=== PATIENT | male | born 1955 | race Two or more races ===

== ENCOUNTER → 2019-11-07 | Outpatient (CLI) | payer BC ==
--- NOTE | 2019-11-07 10:49 | XR ---
EXAMINATION TYPE: XR KUB DATE OF EXAM: 11/07/2019 CLINICAL DATA: 64-year-old male right-sided kidney stones, PHH COMPARISON: None FINDINGS: Supine imaging limited for assessment of free air. Prominent bowel content limits visualization of the renal shadows. Equivocal 1.5 cm calculus versus s tool ball at the right mid abdomen. Small 4 mm calculus suggested at the lower pole of the right kidn ey. A couple small phleboliths in the left side of the pelvis. Surgical clips in the right lower quad rant and within the right side of the pelvis. Nonobstructive bowel gas pattern. Moderate stool in the right side of the abdomen. IMPRESSION: 1. Bowel content obscures much of the kidneys. Equivocal between a 1.5 cm renal calculus versus stool ball on the right. 2. Suspect a tiny 4 mm right lower pole renal calculus.
== END | disposition home or self-care (01) ==
LOC: RADXRMAIN 10:22
PROVIDERS: ATTEND Urology
DX: N20.0 Calculus of kidney (principal)
CPT/HCPCS: 74018

== ENCOUNTER → 2019-11-18 | Outpatient (CLI) | payer BC ==
--- NOTE | 2019-11-18 09:35 | XR ---
EXAMINATION TYPE: XR KUB DATE OF EXAM: 11/18/2019 9:27 AM CLINICAL HISTORY: Right-sided renal calculus. Recent lithotripsy. TECHNIQUE: Single supine KUB image of the abdomen is obtained. COMPARISON: 11/07/2019. FINDINGS: Right stent has been placed coiled with its proximal portion overlying the expected region of the kidney and distal portion in the expected region of the urinary bladder. Again stool overlies the renal shadow. Again there is a suspected 4 mm right lower pole renal calculus. The previously see n 1.5 cm possible calculus is no longer visualized. Some density is noted along the proximal aspect o f the ureteral stent. Surgical clips are also seen over the right iliac bone. IMPRESSION: Interval placement of a right ureteral stent status post lithotripsy. There is some elong ated density along the ureteral stent that may represent fragments of calculi. Probable 4 mm right lo wer pole renal calculus remains. Stool overlies the right renal shadow partially obscures visualizati on.
== END | disposition home or self-care (01) ==
LOC: RADXRMAIN 09:11
PROVIDERS: ATTEND Urology
DX: R93.41 Abnormal radiologic findings on diagnostic imaging of renal pelvis, ureter, or bladder (principal); Z96.0 Presence of urogenital implants
CPT/HCPCS: 74018

== ENCOUNTER → 2020-12-31 | Outpatient (CLI) | payer BC ==
--- NOTE | 2020-12-31 10:04 | US ---
EXAMINATION TYPE: US kidneys/renal and bladder DATE OF EXAM: 12/31/2020 COMPARISON: None CLINICAL HISTORY: D49.4 BLADDER CA. hx bladder cancer. Hx renal stones. EXAM MEASUREMENTS: Right Kidney: 10.2 x 5.3 x 5.4 cm Left Kidney: 11.1 x 4.7 x 5.7 cm Right Kidney: No hydronephrosis or masses seen Left Kidney: lower pole echogenic focus with slight shadow = 0.5 x 0.6 cm Bladder: moderately distended, anechoic. Suspicious changes for neoplasm not identified on this ultra sound exam. Left jet seen IMPRESSION: 1. Nonobstructing inferior pole left renal stone
== END | disposition home or self-care (01) ==
LOC: RADUSWWP 08:51
PROVIDERS: ATTEND Urology
DX: N20.0 Calculus of kidney (principal); C67.4 Malignant neoplasm of posterior wall of bladder; D49.4 Neoplasm of unspecified behavior of bladder
CPT/HCPCS: 76770

== ENCOUNTER → 2022-01-27 | Outpatient (CLI) | payer BC ==
--- NOTE | 2022-01-27 08:01 | US ---
EXAMINATION TYPE: US kidneys/renal and bladder DATE OF EXAM: 01/27/2022 COMPARISON: Prior renal ultrasound December 31, 2020 CLINICAL HISTORY: C67.4 BLADDER CA. Bladder CA x 2 years ago. EXAM MEASUREMENTS: Right Kidney: 10.2 x 4.3 x 4.5 cm Left Kidney: 9.7 x 5.0 x 4.1 cm Right Kidney: No hydronephrosis or masses seen Left Kidney: No hydronephrosis or masses seen Bladder: wnl Bilateral Jets seen: Yes There is no evidence for hydronephrosis at this point in time. No nephrolithiasis is seen. No conrad s are identified. The urinary bladder is not greatly distended. Bilateral ureteral jets are seen. IMPRESSION: Unremarkable study.
== END | disposition home or self-care (01) ==
LOC: RADUSWWP 07:02
PROVIDERS: ATTEND Urology
DX: C67.4 Malignant neoplasm of posterior wall of bladder (principal)
CPT/HCPCS: 76770

== ENCOUNTER → 2023-07-07 | Outpatient (CLI) | payer MEDICARE, BC ==
--- NOTE | 2023-07-14 12:51 | MR ---
EXAMINATION TYPE: MR shoulder RT wo con DATE OF EXAM: 07/07/2023 COMPARISON: None HISTORY: Rt shoulder pain TECHNIQUE: Multiplanar, multisequence imaging of the right shoulder is performed without contrast. FINDINGS: There is moderate to marked osteoarthritic change of the acromioclavicular joint and of the glenohume ral joint. There is superior subluxation of the glenohumeral joint. There is complete tears of the obando praspinatus and infraspinatus tendons with marked retraction of the musculotendinous junctions. There are subchondral cysts in the lateral humeral head. There is avulsion of the biceps tendon consistent with a SLAP injury There is tendinosis of the subscapularis tendon without tear or avulsion. IMPRESSION: 1. Chronic complete rotator cuff tears involving the supraspinatus and infraspinatus tendons with mar ked retraction. 2. Moderate to marked degenerative change of the acromioclavicular joint and glenohumeral joint. 3. superior subluxation of the glenohumeral joint. 4. Long head biceps tendon avulsion consistent with SLAP injury
== END | disposition home or self-care (01) ==
LOC: RADMRIMAIN 14:58
PROVIDERS: ATTEND Orthopaedic Surgery
DX: M75.121 Complete rotator cuff tear or rupture of right shoulder, not specified as traumatic (principal); M19.011 Primary osteoarthritis, right shoulder; S43.001A Unspecified subluxation of right shoulder joint, initial encounter; M67.813 Other specified disorders of tendon, right shoulder

== ENCOUNTER → 2023-08-24 | Outpatient (CLI) | payer MEDICARE, BC ==
[2023-08-24 16:33] LABS: HCT 43.3 % (39.6-50.0); HGB 14.3 d/dL (13.0-17.0); MCH 33.2 pg (27.0-32.0); MCV 100.5 FL (80.0-97.0); Mean Platelet Volume 9.3 FL (9.5-12.2); NRBC Per 100 WBC 0 X 10*3/uL (0.00-0.01); Platelet Count 307 X 10*3/uL (140-440); RBC 4.31 X 10*6/uL (4.40-5.60); RDW 12.2 % (11.5-14.5); WBC 6.13 X 10*3/uL (4.50-10.00)
[2023-08-24 16:51] LABS: Anion Gap 13.3 mmol/L (4.00-12.00); Carbon Dioxide 24.7 mmol/L (21.6-31.8); Potassium 4.4 mmol/L (3.5-5.5)
== END | disposition home or self-care (01) ==
LOC: LABPAT 11:42
PROVIDERS: ATTEND Orthopaedic Surgery
DX: Z01.812 Encounter for preprocedural laboratory examination (principal); M75.41 Impingement syndrome of right shoulder
CPT/HCPCS: 80051; 85027

== ENCOUNTER 2023-09-06 12:31 | Day surgery (SDC) | payer MEDICARE, BC ==
[2023-09-04 11:52] VITALS: BMI 23.4
--- NOTE | 2023-09-05 13:56 | HP ---
HISTORY AND PHYSICAL DATE OF SCHEDULED SURGERY: 09/06/2023. HISTORY OF PRESENT ILLNESS: Spencer Conner is a 68-year-old gentleman seen with progressive right shoulder pain. We discussed options for treatment, he elected to proceed with right shoulder arthroscopy. Consent was obtained. PAST MEDICAL HISTORY: Hypertension, hyperlipidemia. SURGICAL HISTORY: Knee arthroscopy, left shoulder arthroscopy, corneal transplant, appendectomy. DAILY MEDICATIONS: 1. Amlodipine. 2. Atorvastatin. 3. Tylenol. ALLERGIES: LUIS EDUARDO inhibitors and NSAIDs. SOCIAL HISTORY: Denies tobacco use. PHYSICAL EVALUATION OF THE RIGHT SHOULDER: Flexion is 90 degrees, abduction is 70 degrees, external rotation is 50 degrees with pain and weakness. Tenderness along the anterior lateral acromion rotator cuff insertion. Impingement is positive 80 degrees. Cross body adduction sign is positive. Drop-arm sign is positive. RADIOGRAPHS: Right shoulder revealed a type 3 acromion, severe acromioclavicular joint osteoarthritis and cystic changes of the greater tuberosity. Right shoulder MRI revealed a read large retracted rotator cuff tendon tear, acromioclavicular joint osteoarthritis and labral tear. IMPRESSION: 1. Right shoulder impingement with rotator cuff tear. 2. Right shoulder acromioclavicular joint osteoarthritis. 3. Right shoulder labral tear. 4. Hypertension. 5. Hyperlipidemia. PLAN: Right shoulder arthroscopy with subacromial decompression, rotator cuff repair, Lindsey procedure and debridement. MMODL / BRIANNAN: [id number] /
[~2023-09-06 12:31] MED LIST: DEXAMETHASONE SOD PHOSPHATE 4 MG/ML 1 ML VIAL IV ONE; HYDROmorphone 0.5 MG/0.5 ML SYRINGE IVP PRN; LACTATED RINGERS 1,000 ML IV SCH; LIDOCAINE 1% (10MG/ML) FOR IV START INTRADERMA PRN; MIDAZOLAM 2 MG/2 ML VIAL IV PRN; ONDANSETRON 4 MG/2 ML VIAL IVP ONE
[2023-09-06] MEDS ORDERED: LACTATED RINGERS 1,000 ML IV ONE (12:51)
[2023-09-06 13:03] VITALS: TEMP 97.3
[2023-09-06] MEDS ORDERED: MIDAZOLAM 2 MG/2 ML VIAL IVP ONE (13:22)
[2023-09-06] MEDS ORDERED: SUCCINYLCHOLINE CHLORIDE 200 MG/10 ML VIAL IV ONE (13:44)
[2023-09-06] MEDS ORDERED: SODIUM CHLORIDE 0.9% (PF) 10 ML VIAL ONE (13:44)
[2023-09-06] MEDS ORDERED: fentaNYL (PF) 50 MCG/ML 2 ML AMP ONE (13:44)
[2023-09-06] MEDS ORDERED: ROCURONIUM 10 MG/ML (5 ML VIAL) IV ONE (13:44)
[2023-09-06] MEDS ORDERED: PROPOFOL 10 MG/ML 20 ML VIAL IV ONE (13:44)
[2023-09-06] MEDS ORDERED: ROPIVACAINE 5 MG/ML 30 ML VIAL ONE (13:44)
[2023-09-06] MEDS ORDERED: NEOSTIGMINE 1 MG/ML 10 ML VIAL ONE (13:44)
[2023-09-06] MEDS ORDERED: GLYCOPYRROLATE 0.2 MG/ML 2 ML VIAL ONE (13:44)
[2023-09-06] MEDS ORDERED: ePHEDrine 50 MG/ML 1 ML VIAL ONE (13:44)
[2023-09-06] MEDS ORDERED: LIDOCAINE 1% INJ 10MG/ML (20 ML MDV) ONE (13:44)
--- NOTE | 2023-09-06 15:45 | P.OP ---
Date of Procedure: 09/06/23 Preoperative Diagnosis: Right shoulder impingement Postoperative Diagnosis: 1. Right shoulder rotator cuff tear 2. Right shoulder impingement 3. Right shoulder acromioclavicular joint osteoarthritis 4. Right shoulder glenoid grade 4 chondromalacia/osteoarthritis Procedure(s) Performed: 1. Right shoulder arthroscopic rotator cuff repair 2. Right shoulder arthroscopic subacromial decompression 3. Right shoulder arthroscopic Lindsey procedure 4. Right soulder arthroscopic microfracture glenoid Implants: 1Arthrex 5.5 swivel lock anchor Anesthesia: GETA, regional (Interscalene block) Surgeon: Ole Brody Bell Clerk #1: Fred Parsons Estimated Blood Loss (ml): 11 Pathology: none sent Condition: stable Disposition: PACU Indications for Procedure: 68-year-old gentleman seen with progressive right shoulder pain. After having treatment options discussed, he elected to proceed with arthroscopy. Operative Findings: See description of procedure Description of Procedure: Patient underwent an interscalene block by department of anesthesia. The patient was then taken to the operative suite. The patient underwent a general anesthetic by the department of anesthesia. The patient was placed into a lateral position and secured. There was appropriate padding of the bony prominence. Right shoulder was then prepped and draped in normal sterile orthopedic fashion. We placed the extremity in 10 pounds of longitudinal traction. A posterior incision was now made for a posterior working portal site. The trocar and cannula were inserted into the glenohumeral joint. Arthroscopy was initiated. Spinal needle was now inserted anteriorly, to ascertain the anterior working portal site. An incision was now made in that area, a trocar was inserted followed by a probe. The long head biceps tendon was absent. The labrum was diminutive with no tearing. There was a massive rotator cuff tear present. There were grade 3/4 chondromalacia changes of the glenoid fossa with 2 areas of exposed bone present. The humeral head had grade 1 chondromalacia with no tears. I introduced a microfracture awl. I performed microfracture's to 2 areas of exposed bone penetrating the bone with resultant bleeding at the microfracture site. The repair was probed and was stable. Instruments were now removed from the glenohumeral joint. Utilizing the posterior working portal site, the trocar and cannula were inserted into the subacromial space. Arthroscopy initiated. I made an incision 2 fingerbreadths lateral to the acromion. I introduced my trocar followed by my ArthroCare ablator. I now began ablating thick subacromial bursal tissue, which exposed the undersurface of the anterior acromion. There was diminished subacromial space. There was a very prominent anterior acromion. A motorized bur was introduced and a subacromial decompression was performed. I also excised some osteophytes off the inferior aspect of the distal clavicle. The AC joint was visualized and noted to be fairly arthritic. The motorized bur was introduced in the anterior portal site and a Lindsey procedure was performed without difficulty, decompressing the AC joint nicely. I turned my attention to the rotator cuff. There was a massive retracted rotator cuff tendon tear. I slowly began dissecting the area around the tendon. The tear was retracted beyond the glenoid. I now began meticulously releasing the tendon. At this point I could get the posterior portion of the tendon mobilized but not the middle and anterior portion. I abraded the footprint with a motorized bur. With the assistance of Scott NAVARRO past 5 converging sutures which helped converge the posterior aspect of the remaining tendon with the central area. I now passed 3 everted mattress sutures through good bites of rotator cuff tendon. I punched hole the footprint area for insertion of an anchor. All 6 limbs were passed through the eyelet of the Arthrex 5.5 swivel lock anchor. I placed the eyelet into the pre-punch hole and held in position while Scott NAVARRO tension the sutures and laid the anchor. We good fixation of the anchor. All residual suture limbs were clipped. We had good coverage with adequate fixation but under some tension. Instruments now removed from the portal sites. All portal sites were approximated with nylon suture. Sterile dressings were applied followed by a shoulder immobilizer. Fred NAVARRO assisted in this complex case. The patient was awakened, transferred to a bed, and taken to recovery in stable condition.
[2023-09-06 16:47] VITALS: RESP 16
[2023-09-06 17:09] VITALS: BP 133/84; PULSE 69
--- NOTE | 2023-09-06 18:24 | P.ANPRN ---
Procedure Note - Anesthesia - Nerve Block Performed Left Interscalene Single Time Out Performed: Yes Date of Procedure: 09/06/23 Procedure Start Time: : Procedure Stop Time: Location of Patient: PreOp Indication: Acute Post-Operative Pain, Requested by Surgeon Sedation Type: Sedate with meaningful contact maintained Preparation: Sterile Prep Position: Supine Needle Types: Pajunk Needle Gauge: 21 Ultrasound used to visualize needle placement: Yes Ultrasound used to observe medication spread: Yes Blood Aspirated: No Pain Paresthesia on Injection Noted: No Resistance on Injection: Normal Image Stored and Saved: Yes Events: Uneventful and Well Tolerated (ropi .5% 20cc plus dexamethasone 4mg)
== END 2023-09-06 17:36 | disposition home or self-care (01) ==
LOC: OR 12:31
PROVIDERS: ATTEND Orthopaedic Surgery
DX: M75.101 Unspecified rotator cuff tear or rupture of right shoulder, not specified as traumatic (principal); G89.18 Other acute postprocedural pain; M75.41 Impingement syndrome of right shoulder; M19.011 Primary osteoarthritis, right shoulder; M94.211 Chondromalacia, right shoulder; M25.711 Osteophyte, right shoulder; I45.10 Unspecified right bundle-branch block; I10 Essential (primary) hypertension; E78.5 Hyperlipidemia, unspecified; K52.831 Collagenous colitis; K21.9 Gastro-esophageal reflux disease without esophagitis; Z94.7 Corneal transplant status; Z88.6 Allergy status to analgesic agent; Z79.01 Long term (current) use of anticoagulants; Z79.1 Long term (current) use of non-steroidal anti-inflammatories (NSAID); Z87.891 Personal history of nicotine dependence; Z98.890 Other specified postprocedural states; Z79.899 Other long term (current) drug therapy
CPT/HCPCS: 29824; 29826; 29827; 64415; C1894; C1713; J2250; J0330; J1100; J2710; J0690; J2405; J2001; J3010; J2795; J2704

== ENCOUNTER → 2024-04-15 | Outpatient (CLI) | payer MEDICARE, BC ==
--- NOTE | 2024-04-15 14:16 | US ---
EXAMINATION TYPE: US extremity nonvasc mass RT DATE OF EXAM: 04/15/2024 COMPARISON: NONE CLINICAL INDICATION: Male, 68 years old with history of R22.31 LOCALIZED SWELLING, MASS AND LUMP, RIG HT UP; Hardening to right upper forearm into elbow x 3 weeks; History of bursitis with drainage TECHNIQUE: Multiple grayscale ultrasound images of the right upper forearm and elbow were obtained. FINDINGS/IMPRESSION: There is some trace soft tissue edema noted in the tissue surrounding the patien t's area of concern. No organized fluid collection or mass identified.
== END | disposition home or self-care (01) ==
LOC: RADUSWWP 13:22
PROVIDERS: ATTEND Family Medicine
DX: R22.31 Localized swelling, mass and lump, right upper limb (principal)

== ENCOUNTER → 2025-01-09 | Outpatient (CLI) | payer MEDICARE, BC ==
--- NOTE | 2025-01-09 15:48 | US ---
EXAMINATION TYPE: US kidneys/renal and bladder DATE OF EXAM: 01/09/2025 COMPARISON: 01/12/23 CLINICAL INDICATION: Male, 69 years old with history of C67.4 MAL NEOPLASM WALL OF BLADDER; hx of justina dder cancer 5 years ago TECHNIQUE: Grayscale imaging of the bilateral kidneys and urinary bladder: FINDINGS: EXAM MEASUREMENTS: Right Kidney: 11.6 x 5.2 x 5.6 cm Left Kidney: 10.5 x 5.4 x 6.1 cm Right Kidney: No hydronephrosis or masses seen Left Kidney: No hydronephrosis or masses seen Bladder: wnl Bilateral Jets seen: Yes There is no evidence for hydronephrosis at this point in time. No nephrolithiasis is seen. No conrad s are identified. The urinary bladder is anechoic. IMPRESSION: No evidence for hydronephrosis or obstructive uropathy. [facility], , 01/09/2025 3:45 PM
== END | disposition home or self-care (01) ==
LOC: RADUSWWP 15:16
PROVIDERS: ATTEND Urology
DX: C67.4 Malignant neoplasm of posterior wall of bladder (principal)
CPT/HCPCS: 76770

== ENCOUNTER → 2025-01-21 | Outpatient (CLI) | payer MEDICARE, BC ==
--- NOTE | 2025-01-21 13:21 | MR ---
EXAMINATION TYPE: MR lumbar spine wo con DATE OF EXAM: 01/21/2025 1:08 PM COMPARISON: None. CLINICAL INDICATION: Male, 69 years old with history of M54.16 lumbar radiculopathy; PHH, low back pa in that radiates into both hips and down legs. TECHNIQUE: Multi planar, multi sequence imaging was performed utilizing: T1-weighted, T2-weighted, a nd turbo inversion recovery imaging of the lumbar spine. IV Contrast: mL (None, if empty) FINDINGS: Alignment: The lumbar vertebral bodies have preserved heights with grade 1 anterolisthesis of L5 on S 1. Cord: The conus medullaris and the distal spinal cord appear unremarkable with regards to their signa l intensity and morphology. Bones/Discs: Superior endplate deformity to the L3 vertebral body without bony edema. There is 25-50% height loss centrally. Moderate degeneration changes throughout the spine with osteophyte formation and facet joint arthropathy. Scattered Schmorl's nodes are present. Multilevel disc desiccation is pr esent. Reactive adjoining endplate edema at L5-S1 adjoining endplates T12-L1: No evidence of significant spinal canal stenosis or neural foraminal stenosis. L1-L2: No evidence of significant spinal canal stenosis. Facet joint arthropathy mild bilateral neura l foraminal stenosis. L2-L3: No evidence of significant spinal canal stenosis. Facet joint arthropathy mild bilateral neura l foraminal stenosis. L3-L4: No evidence of significant spinal canal stenosis. Facet joint arthropathy mild bilateral neura l foraminal stenosis. L4-L5: Disc bulge and facet joint arthropathy result in mild spinal canal and mild to moderate bilate ral neural foraminal stenosis. L5-S1: Disc uncovering from grade 1 anterolisthesis and facet joint arthropathy with mild spinal edith l stenosis and moderate bilateral neural foraminal stenosis. No significant spinal canal or neural foraminal stenosis in the remainder of the visualized levels. Other findings: None. IMPRESSION: 1. No definitive evidence of disc herniation or significant spinal canal stenosis. 2. Moderate disc degeneration with associated osteoarthritic changes. 3. Superior endplate deformity to the L3 vertebral body without bony edema. There is 25-50% height l oss centrally. 4. Grade 1 anterolisthesis of L5 on S1. [facility], , 01/21/2025 1:18 PM
== END | disposition home or self-care (01) ==
LOC: RADMRIMAIN 12:25
PROVIDERS: ATTEND Orthopaedic Surgery
DX: M51.16 Intervertebral disc disorders with radiculopathy, lumbar region (principal); M43.17 Spondylolisthesis, lumbosacral region
CPT/HCPCS: 72148

== ENCOUNTER → 2025-03-12 | Outpatient (CLI) | payer MEDICARE, BC ==
[2025-03-12 08:32] VITALS: BP 146/82; PULSE 69; RESP 18; TEMP 97.9
--- NOTE | 2025-03-12 14:50 | P.PAINPG ---
PQRS Measure Charge Sheet Comment: HISTORY OF PRESENT ILLNESS: A 69 yr old male as a referral from Dr Camara presents today w severe and chronic LBP > 1 yr secondary to radiculopathy, spondylosis and facet arthropathy without myelopathy for evaluation. Pt states pain level is provoked at 8 /10 in intensity, constant, localized in the lower lumbar spine, predominantly axial, achy in character w occasional shooting pain towards the hips and feet. Pain is provoked by bending. Pain is alleviated by chiropractic treatments semi monthly since Dec 2024, physician guided home exercises 4-5 times weekly since Dec 2024, medications, heat, manual massage, repositioning and rest . Oswestry axial pain score at 27. PMH: OA, HTN, Hyperlipidemia, Colitis, Bladder CA PSH: R RCT Repair (2022), Bladder CA (2019), Nephrolithiasis (2019), L Shoulder Arthroscopy, Appendectomy, Corneal Transplant SH: Hx tobacco use (quit 2019), Occ ETOH use, No illicit drug use FH: Non contributory All: See list Meds: See list include Dora Sky REVIEW OF ORGAN SYSTEMS: CONSTITUTIONAL: No fevers or chills. No recent weight loss. NEUROLOGICAL: + numbness and tingling along the distal extremities. No seizure disorders or headaches. MUSCULOSKELETAL: + pain PSYCHIATRIC: Denies current depression or suicidal thoughts. Physical Examinations : Constitutional : Cooperative , not in acute distress . Neurologic : Cranial nerve II to XII intact. No focal neurological deficits. Psychiatric : alert & oriented x 3. Matching mood & appropriate affect. Judgment & insight intact. Musculoskeletal : Cervical Spine Motor strength in the deltoid and biceps: Normal right side. Normal Left side Motor strength biceps and the wrist extensors: Normal right side . Normal left side Motor strength in the triceps muscle: Normal right side. Normal left side Deep tendon reflexes: Normal at the biceps. Normal at Brachioradialis. Normal at triceps Vertebral body tenderness to deep palpation over Cervical facet loading test: positive bilaterally Spurling test: positive bilaterally Neck distraction test: positive bilaterally Frances sign: positive bilaterally Lumbar spine Motor strength lower extremities ,thigh and legs 5/5 Right side , 5/5 Left side Deep tendon reflexes : Normal Knee Jerk. Normal Ankle Jerk Vertebral body tenderness over L5 Warner Test positive BL L5-S1 Lumbar facet Loading Test: positive Right / positive Left Range of motion of the lumbar spine Flexion 30 degrees, extension 10 degrees Straight Leg Raise test: Left/ Right positive at degrees Dalia test: positive right / positive left. Severe tenderness over the Sacroiliac joint on the Right / Left sides Gaenslen test: positive bilaterally Seated flexion test: positive bilaterally. Sacral spine : Severe tenderness over the Sacroiliac joint: right side / left side Range of motion: Flexion of the lumbar spine <60 degrees Range of motion: Extension of the lumbar spine <20 degrees Gaenslen's Test positive Dalia test: positive right side / left side Thigh Thrust Test Sacral Thrust Test Imaging: MRI non contrast lumbar spine from 01/21/2025 reviewed Assessment/ Plan : L5-S1 anterolisthesis Recommendation of LYNN L5-S1 #1 and medication management. Hickman 7.5/325 mg #90. Opiate/narcotic agreement signed 03/12/2025. Use, side effects, adverse reactions and safe storage discussed. Risks, benefits of procedure discussed and patient verbalized understanding. Admits to anti- coagulant use or medical history of diabetes. Protocol for discontinuation/ continuation of medications patricia procedure discussed. All questions answered. I have spent greater than 30 minutes on patient care today. Dr Brown was available by phone for the evaluation of this patient. The time was used to review the medical records including relevant urine studies and Prescription history (MAPs), review of the available imaging, evaluation and examination of the patient, coordination of care with the medical staff and if applicable referring physicians, as well as creation of the medical record - Pain Location Lower Back Non-Pharmacological Interventions: Heat Pharmacological Interventions: Medication Home Medications: Ambulatory Orders Acetaminophen Tab [Tylenol] 650 mg PO Q4H PRN 09/04/23 Atorvastatin [Lipitor] 10 mg PO DAILY 09/04/23 Diphenox-Atrop 2.5-0.025MG/5Ml [Lomotil Oral Soln] 5 ml PO 5XD PRN 09/04/23 amLODIPine BESYLATE 10 mg PO DAILY 09/04/23 HYDROcodone/APAP 7.5-325MG [Hickman 7.5-325] 1 each PO TID PRN 30 Days #90 tab 03/12/25 Controlled Substance Measures - Controlled Substance Measures Is patient prescribed a controlled substance at discharge?: Yes When asked, does pt state using other controlled substances?: Yes If prescribed controlled substance>3 days was MAPS reviewed?: Yes If Rx opioid, was Start Talking consent form obtained?: Yes Was information provided regarding opioid addiction?: Yes
== END ==
LOC: PNWHC3 07:52
PROVIDERS: ATTEND Specialist
DX: M43.17 Spondylolisthesis, lumbosacral region (principal); M47.26 Other spondylosis with radiculopathy, lumbar region; M16.12 Unilateral primary osteoarthritis, left hip; Z88.8 Allergy status to other drugs, medicaments and biological substances
CPT/HCPCS: 99212

== ENCOUNTER 2025-03-24 08:55 | Day surgery (SDC) | payer MEDICARE, BC ==
[2025-03-20 13:10] VITALS: BMI 25.0
[~2025-03-24 08:55] MED LIST changes: -DEXAMETHASONE SOD PHOSPHATE 4 MG/ML 1 ML VIAL IV ONE; -HYDROmorphone 0.5 MG/0.5 ML SYRINGE IVP PRN; -LIDOCAINE 1% (10MG/ML) FOR IV START INTRADERMA PRN; -MIDAZOLAM 2 MG/2 ML VIAL IV PRN; -ONDANSETRON 4 MG/2 ML VIAL IVP ONE
[2025-03-24 09:23] VITALS: TEMP 97.3
[2025-03-24] MEDS ORDERED: methylPREDNISolone ACETATE 80 MG/ML 1 ML VIAL ONE (09:49)
[2025-03-24] MEDS ORDERED: IOPAMIDOL M200 10 ML VIAL ONE (09:49)
--- NOTE | 2025-03-24 09:56 | P.PCN ---
Date of Procedure: 03/24/25 Procedure(s) Performed: PREOPERATIVE DIAGNOSIS: 1- Lumbar Degenerative Disc Diseases 2-Lumbar spondylosis with Facet arthropathy without myelopathy. 3-lumbar spinal stenosis 4-lumbar radiculopathy POSTOPERATIVE DIAGNOSIS: 1-lumbar degenerative disc disease. 2-lumbar spondylosis with facet arthropathy without myelopathy. 3-lumbar spinal stenosis. 4-lumbar radiculopathy PROCEDURE 1. Lumbar epidural steroid injection under fluoroscopic guidance at the L5-S1 level. (Fluoroscopy imaging was available in radiology department) 2. Lumbar epidurogram. ANESTHESIA: Lidocaine 1% 3 and then only. EBL: Minimal PROCEDURE INDICATION: The patient with low back pain and radiculitis symptoms unresponsive to conservative treatment. Fluoroscopy was used to optimize visualization of the needle placement and to maximize safety. PROCEDURE DESCRIPTION / TECHNIQUE: The patient was seen and identified in the preoperative area. Risks, benefits, complications including but not limited to infections ,bleeding ,allergic reaction to the medications ,nerve damage and not complete pain releife , and alternatives were discussed with the patient. The patient agreed to proceed with the procedure and signed the consent, and vital signs were stable. Patient was taken to the OR and time out was completed. The patient was placed in the prone position on procedure table and a pillow was placed under the abdomen to reduce lumbar lordosis. The lumbosacral area was prepped and draped in the usual sterile fashion.ere closely monitored during the procedure. Vital signs was monitered during the entire procedure. Using anterior-posterior fluoroscopy, the L5-S1 interlaminar space was identified and the skin over this site was marked and then infiltrated with 1% lidocaine subcutaneously. Subsequently, a 20-gauge Tuohy epidural needle was inserted and advanced toward the epidural space using the ``Loss of resistance technique and guided by AP and lateral fluoroscopy. The correct needle position in the epidural space was verified with the injection of 2 mL of the water soluble contrast dye Isovue 200 contrast and observing an excellent epidurogram with the epidural spread of the dye, after negative aspiration for blood and CSF and in the absence of paresthesias. Again after negative aspiration, a 6 ml mixture containing 80 mg of Depo-medrol ( Preservetive Free ), and 2 ml of preservative free Normal Saline, and 2 ml of preservative free lidocaine 1% solution was injected and a washout of epidurogram was seen. Needle was withdrawn intact, skin was cleansed, and bandages were applied. COMPLICATIONS: None DISPOSITION / PLANS: The patient was placed in a supine position and transferred to the recovery area in a stable condition for observation. There was no evidence of lower extremity motor or sensory deficit after the procedure. Patient was discharged from the recovery room after meeting discharge criteria. Home discharge instructions were given to the patient by the staff. The patient was reexamined prior to discharge. The patient will schedule a follow up in the clinic in 2-4 weeks.
--- NOTE | 2025-03-24 10:02 | FL ---
EXAMINATION TYPE: FL guided pain mgmt statistic DATE OF EXAM: 03/24/2025 CLINICAL INDICATION: Male, 69 years old with history of LESI; PHH, pain TECHNIQUE: Fluoroscopy. COMPARISON: None. FINDINGS: Fluoroscopic guidance was provided during pain relief procedure performed by Dr. Brown . A total of 4.1 seconds of fluoroscopic time was utilized during the procedure and one image was ac quired. Image acquired shows needle localization at L4-L5 level. Degeneration changes of the visualized joints. Total DAP: [id number] mGym2. IMPRESSION: As Above. [facility], , 03/24/2025 10:00 AM
[2025-03-24 10:22] VITALS: BP 131/89; PULSE 64; RESP 18
== END 2025-03-24 10:31 | disposition home or self-care (01) ==
LOC: ORPAIN 08:55
PROVIDERS: ATTEND Specialist
DX: M51.16 Intervertebral disc disorders with radiculopathy, lumbar region (principal); M47.26 Other spondylosis with radiculopathy, lumbar region; M48.061 Spinal stenosis, lumbar region without neurogenic claudication; Z88.8 Allergy status to other drugs, medicaments and biological substances
CPT/HCPCS: 62323; Q9966; J1010

== ENCOUNTER → 2025-04-09 | Outpatient (CLI) | payer MEDICARE, BC ==
[2025-04-09 07:49] VITALS: BP 150/82; PULSE 74; RESP 16; TEMP 97.7
--- NOTE | 2025-04-13 14:21 | P.PAINPG ---
Objective - Vital Signs Vital signs: Intake & Output 04/08/25 04/09/25 04/09/25 18:59 06:59 18:59 Weight 81.193 kg PQRS Measure Charge Sheet Comment: HISTORY OF PRESENT ILLNESS: A 69 yr old male presents today w severe and chronic LBP > 1 yr secondary to radiculopathy, spondylosis and facet arthropathy without myelopathy for evaluation s/p LYNN L5-S1 #1. Pt states he experienced % pain relief x 2 wks s/p procedure. Pt states pain level is provoked at 5-9 /10 in intensity, constant, localized in the lower lumbar spine, predominantly axial, achy in character w occasional shooting pain towards the hips. Pain is provoked by bending. Pain is alleviated by chiropractic treatments semi monthly since Dec 2024, physician guided home exercises 4-5 times weekly since Dec 2024, medications, heat, manual massage, repositioning and rest . Oswestry axial pain score at 27. Interventional procedures include R RCT Repair (2022), L Shoulder Arthroscopy, LYNN L5-S1 x1 Medications include [place] 7.5/325mg #90, Mobic, Tyl REVIEW OF ORGAN SYSTEMS: CONSTITUTIONAL: No fevers or chills. No recent weight loss. NEUROLOGICAL: + numbness and tingling along the distal extremities. No seizure disorders or headaches. MUSCULOSKELETAL: + pain PSYCHIATRIC: Denies current depression or suicidal thoughts. Physical Examinations : Constitutional : Cooperative , not in acute distress . Neurologic : Cranial nerve II to XII intact. No focal neurological deficits. Psychiatric : alert & oriented x 3. Matching mood & appropriate affect. Judgment & insight intact. Musculoskeletal : Cervical Spine Motor strength in the deltoid and biceps: Normal right side. Normal Left side Motor strength biceps and the wrist extensors: Normal right side . Normal left side Motor strength in the triceps muscle: Normal right side. Normal left side Deep tendon reflexes: Normal at the biceps. Normal at Brachioradialis. Normal at triceps Vertebral body tenderness to deep palpation over Cervical facet loading test: positive bilaterally Spurling test: positive bilaterally Neck distraction test: positive bilaterally Frances sign: positive bilaterally Lumbar spine Motor strength lower extremities ,thigh and legs 5/5 Right side , 5/5 Left side Deep tendon reflexes : Normal Knee Jerk. Normal Ankle Jerk Vertebral body tenderness over L5 Warner Test positive BL L5-S1 Lumbar facet Loading Test: positive Right / positive Left Range of motion of the lumbar spine Flexion 30 degrees, extension 10 degrees Straight Leg Raise test: Left/ Right positive at degrees Dalia test: positive right / positive left. Severe tenderness over the Sacroiliac joint on the Right / Left sides Gaenslen test: positive bilaterally Seated flexion test: positive bilaterally. Sacral spine : Severe tenderness over the Sacroiliac joint: right side / left side Range of motion: Flexion of the lumbar spine <60 degrees Range of motion: Extension of the lumbar spine <20 degrees Gaenslen's Test positive Dalia test: positive right side / left side Thigh Thrust Test Sacral Thrust Test Imaging: MRI non contrast lumbar spine from 01/21/2025 reviewed Assessment/ Plan : L5-S1 anterolisthesis Recommendation of BL TFESI L5-S1 #2 and medication management. [place] 7.5/325 mg #90. Opiate/narcotic agreement signed 03/12/2025. UDS collected 04/09/25. Risks, benefits of procedure discussed and patient verbalized understanding. Protocol for discontinuation/continuation of medication surrounding procedure discussed. Use, side effects, adverse reactions and safe storage discussed. All questions answered. I have spent greater than 30 minutes on patient care today. Dr Brown was available by phone for the evaluation of this patient. The time was used to review the medical records including relevant urine studies and Prescription history (MAPs), review of the available imaging, evaluation and examination of the patient, coordination of care with the medical staff and if applicable referring physicians, as well as creation of the medical record - Pain Location Bilateral Lower Back Non-Pharmacological Interventions: Heat, Inactivity, Position/Reposition, Sitting Pharmacological Interventions: Epidural, PRN Medication, Scheduled Medication PQRS Narrative: Hx Alcohol Use (MH) No Home Medications: Ambulatory Orders Acetaminophen Tab [Tylenol] 650 mg PO Q4H PRN 09/04/23 Atorvastatin [Lipitor] 10 mg PO DAILY 09/04/23 Diphenox-Atrop 2.5-0.025MG/5Ml [Lomotil Oral Soln] 5 ml PO 5XD PRN 09/04/23 amLODIPine BESYLATE 10 mg PO DAILY 09/04/23 HYDROcodone/APAP 7.5-325MG [[place] 7.5-325] 1 each PO TID PRN 30 Days #90 tab 05/08/25 diazePAM [Valium] 10 mg PO DAILY 1 Days #1 tab 03/23/25 Controlled Substance Measures - Controlled Substance Measures Is patient prescribed a controlled substance at discharge?: No
== END ==
LOC: PNWHC3 07:16
PROVIDERS: ATTEND Specialist
DX: M43.17 Spondylolisthesis, lumbosacral region (principal); F12.90 Cannabis use, unspecified, uncomplicated; Z88.6 Allergy status to analgesic agent; Z88.8 Allergy status to other drugs, medicaments and biological substances
CPT/HCPCS: 80307; G0463; 99212

== ENCOUNTER 2025-05-07 12:48 | Day surgery (SDC) | payer MEDICARE, BC ==
[2025-05-06 11:27] VITALS: BMI 25.1
[2025-05-07 14:08] VITALS: RESP 16; TEMP 97.7
[2025-05-07] MEDS ORDERED: IOPAMIDOL M300 15ML VIAL ONE (14:48)
[2025-05-07] MEDS ORDERED: DEXAMETHASONE SOD PHOSPHATE 10 MG/ML 1 ML VIAL ONE (14:48)
--- NOTE | 2025-05-07 15:12 | P.PCN ---
Description of Procedure: PREOPERATIVE DIAGNOSIS: 1-Lumbar radiculopathy . 2-lumbar degenerative disc disease. 3-lumbar spondylosis with lumbar facet arthropathy without myelopathy POSTOPERATIVE DIAGNOSIS: 1-lumbar radiculopathy. 2-lumbar degenerative disc disease. 3-lumbar spondylosis with facet arthropathy without myelopathy PROCEDURE 1. Transforaminal epidural steroid injection under fluoroscopic guidance at BILATERAL L5-S1 level. (Fluoroscopy images stored on file in the radiology Department ) 2. Lumbar epidurogram . ANESTHESIA: Local with 1% lidocaine 5 ml. subcutaneously. Continuous pulse ox, EKG, blood pressure and verbal communication was maintained with the patient. EBL: Minimal PROCEDURE INDICATION: The patient with low back pain and radiculopathy symptoms unresponsive to conservative treatment. The patient was seen and identified in the preoperative area. Risks, benefits, complications, and alternatives were discussed with the patient. The patient agreed to proceed with the procedure and signed the consent. IV was started, and vital signs were stable. PROCEDURE DESCRIPTION / TECHNIQUE: After getting consent, patient was taken to the OR and time out was completed. The patient was placed in the prone position on procedure table and a pillow was placed under the abdomen to reduce lumbar lordosis. The lumbosacral area was prepped and draped in the usual sterile fashion. Critical pause was taken. After injecting 5 mL of plain 1% lidocaine subcutaneously, under oblique view of the fluoroscope, a 22-gauge spinal needle was introduced under the tunnel view of the fluoroscope on the RIGHT side and the needle was advanced so that the tip of the needle was at the posterior inferior quadrant of the intervertebral for amen at the lateral view of the fluoroscope and in the lateral third of the facet column in the AP view of the fluoroscope. Negative CSF, negative blood, negative paresthesia. After needle position confirmation by AP and cross table lateral view, 3 mL of Isovue-M 200 contrast was injected under continuous fluoroscope. No contrast was noted in the intrathecal or intravascular space. The epidurogram was noted. Again after repeated negative aspiration 2.5 mL solution was injected which consists 1 mL of normal saline mixed with 1.5 mL of 15 mg dexamethasone. Needle was removed . Same procedure was repeated at the LEFT side at same level , using contrast under continuous fluoroscopy and using same amount of dexamethasone. At the end of the procedure, skin was cleansed, and bandages were applied. DISPOSITION / PLANS: No complication. The patient tolerated the procedure well. The patient was placed in a supine position and transferred to the recovery area in a stable condition for observation. There was no evidence of lower extremity motor or sensory deficit after the procedure. Patient was discharged from the recovery room after meeting discharge criteria. Home discharge instru ctions were given to the patient by the staff. The patient was reexamined prior to discharge.
[2025-05-07 15:33] VITALS: BP 145/90; PULSE 68
--- NOTE | 2025-05-07 16:37 | FL ---
Fluoroscopic pain management statistic. HISTORY: Back pain COMPARISON: None. TECHNIQUE: 3 spot films were obtained following injection of contrast into neural foramina at the L5- S1 level bilaterally. IMPRESSION: IMPRESSION: Bilateral L5-S1 transforaminal steroid and contrast injection. [facility], , 05/07/2025 4:34 PM
== END 2025-05-07 15:37 | disposition home or self-care (01) ==
LOC: ORPAIN 12:48
PROVIDERS: ATTEND Pain Medicine Interventional Pain Medicine
DX: M47.26 Other spondylosis with radiculopathy, lumbar region (principal); M51.16 Intervertebral disc disorders with radiculopathy, lumbar region; Z88.8 Allergy status to other drugs, medicaments and biological substances; Z88.6 Allergy status to analgesic agent
CPT/HCPCS: 64483; J1100; Q9967

== ENCOUNTER → 2025-06-04 | Outpatient (CLI) | payer MEDICARE, BC ==
[2025-06-04 07:47] VITALS: BP 140/84; PULSE 66; TEMP 98
--- NOTE | 2025-06-04 14:28 | P.PAINPG ---
Objective - Vital Signs Vital signs: Intake & Output 06/03/25 06/04/25 06/04/25 18:59 06:59 18:59 Weight 79.832 kg PQRS Measure Charge Sheet Comment: HISTORY OF PRESENT ILLNESS: A 69 yr old male presents today w severe and chronic LBP > 1 yr secondary to radiculopathy, spondylosis and facet arthropathy without myelopathy for evaluation s/p BL TFESI L5-S1 #2. Pt states he experienced % pain relief x 3-4 wks s/p procedure. Pt states pain level is provoked at 5-9 /10 in intensity, constant, localized in the lower lumbar spine, predominantly axial, achy in character w occasional shooting pain towards the hips. Pain is provoked by bending. Pain is alleviated by chiropractic treatments semi monthly since Dec 2024, physician guided home exercises 4-5 times weekly since Dec 2024, medications, heat, manual massage, repositioning and rest . Oswestry axial pain score at 27. Interventional procedures include R RCT Repair (2022), L Shoulder Arthroscopy, LYNN L5-S1 x1 Medications include [place] 7.5/325mg #90, Mobic, Tyl REVIEW OF ORGAN SYSTEMS: CONSTITUTIONAL: No fevers or chills. No recent weight loss. NEUROLOGICAL: + numbness and tingling along the distal extremities. No seizure disorders or headaches. MUSCULOSKELETAL: + pain PSYCHIATRIC: Denies current depression or suicidal thoughts. Physical Examinations : Constitutional : Cooperative , not in acute distress . Neurologic : Cranial nerve II to XII intact. No focal neurological deficits. Psychiatric : alert & oriented x 3. Matching mood & appropriate affect. Judgment & insight intact. Musculoskeletal : Cervical Spine Motor strength in the deltoid and biceps: Normal right side. Normal Left side Motor strength biceps and the wrist extensors: Normal right side . Normal left side Motor strength in the triceps muscle: Normal right side. Normal left side Deep tendon reflexes: Normal at the biceps. Normal at Brachioradialis. Normal at triceps Vertebral body tenderness to deep palpation over Cervical facet loading test: positive bilaterally Spurling test: positive bilaterally Neck distraction test: positive bilaterally Frances sign: positive bilaterally Lumbar spine Motor strength lower extremities ,thigh and legs 5/5 Right side , 5/5 Left side Deep tendon reflexes : Normal Knee Jerk. Normal Ankle Jerk Vertebral body tenderness over L5 Warner Test positive BL L5-S1 Lumbar facet Loading Test: positive Right / positive Left Range of motion of the lumbar spine Flexion 30 degrees, extension 10 degrees Straight Leg Raise test: Left/ Right positive at degrees Dalia test: positive right / positive left. Severe tenderness over the Sacroiliac joint on the Right / Left sides Gaenslen test: positive bilaterally Seated flexion test: positive bilaterally. Sacral spine : Severe tenderness over the Sacroiliac joint: right side / left side Range of motion: Flexion of the lumbar spine <60 degrees Range of motion: Extension of the lumbar spine <20 degrees Gaenslen's Test positive Dalia test: positive right side / left side Thigh Thrust Test Sacral Thrust Test Imaging: MRI non contrast lumbar spine from 01/21/2025 reviewed Assessment/ Plan : L5-S1 anterolisthesis Recommendation of medication management. [place] 7.5/325 mg #90. Opiate/narcotic agreement signed 03/12/2025. UDS 04/09/25 reviewed and consistent. Use, side effects, adverse reactions and safe storage discussed. All questions answered. I have spent greater than 30 minutes on patient care today. Dr Brown was available by phone for the evaluation of this patient. The time was used to review the medical records including relevant urine studies and Prescription history (MAPs), review of the available imaging, evaluation and examination of the patient, coordination of care with the medical staff and if applicable referring physicians, as well as creation of the medical record - Pain Location Bilateral Lower Back Non-Pharmacological Interventions: Chiropractic Treatment, Heat Pharmacological Interventions: Epidural PQRS Narrative: Hx Alcohol Use (MH) Yes: occasional Home Medications: Ambulatory Orders Atorvastatin [Lipitor] 10 mg PO DAILY 09/04/23 amLODIPine BESYLATE 10 mg PO DAILY 09/04/23 Celecoxib [CeleBREX] 100 mg PO BID 05/06/25 Diphenoxylate HCl/Atropine [Diphenoxylate HCl/Atropine 2.5-0.025] 1 tab PO DIRECTED PRN 05/06/25 HYDROcodone/APAP 7.5-325MG [[place] 7.5-325] 1 each PO TID PRN 30 Days #90 tab 06/04/25 HYDROcodone/APAP 7.5-325MG [[place] 7.5-325] 1 tab PO TID PRN 30 Days #90 tab 06/04/25 Controlled Substance Measures - Controlled Substance Measures Is patient prescribed a controlled substance at discharge?: Yes When asked, does pt state using other controlled substances?: Yes If prescribed controlled substance>3 days was MAPS reviewed?: Yes
== END ==
LOC: PNWHC3 07:21
PROVIDERS: ATTEND Specialist
DX: M47.26 Other spondylosis with radiculopathy, lumbar region (principal); M43.17 Spondylolisthesis, lumbosacral region; Z88.6 Allergy status to analgesic agent; Z88.8 Allergy status to other drugs, medicaments and biological substances
CPT/HCPCS: 99212